=== PATIENT | female | born 1955 | race African-American/Black ===

== ENCOUNTER 2020-09-09 08:53 | Emergency (ER) | payer MEDICAID ==
[~2020-09-09] VITALS: Ht 167.6 cm; Wt 70.0 kg
[2020-09-09] MEDS ORDERED: LOSA1TAB25 PO (09:09)
[2020-09-09] MEDS ORDERED: METF500T27 PO (09:09)
[2020-09-09] MEDS ORDERED: ASPI-1026 PO (09:10)
--- NOTE | 2020-09-09 09:11 | NUR ---
MANDI RN: THIS IS A 65 YEAR OLD FEMALE WHO BIB AMBULANCE FROM THE [facility] DUE TO 2 HOUR ONSET OF DIZZINESS AND NAUSEA. PT HAS HX OF DM 2, PT STATES SHE TOOK HER MEDICATIONS THIS AM. PT BS IS 508, PT PLACED PARLIAMENTARY ARCHIVIST SINUS TACHY, CONTINOUS SPO2 AT 96%, AND CYCLE VS.
[2020-09-09] MEDS ORDERED: SODIUM CHLORIDE FLUSH 10ML SYR IVF ONE (10:00)
[2020-09-09] MEDS ORDERED: SODIUM CHLORIDE 0.9% 1,000ML IVBOLUS ONE ×2 (10:00→11:00)
[2020-09-09 10:02] LABS: BASOPHILS % (AUTO) 0 % (0-1); EOSINOPHILS % (AUTO) 0 % (1-7); LYMPHOCYTES % (AUTO) 13 % (22-44); MEAN CORPUSCULAR HEMOGLOBIN 29.5 pg (27.0-34.8); MEAN CORPUSCULAR HGB CONC 33.1 g/dL (32.4-35.8); MEAN PLATELET VOLUME 8.4 fL (7.4-10.4); MONOCYTES % (AUTO) 5 % (2-9); NEUTROPHILS % (AUTO) 81 % (42-75); PLATELET COUNT 303 x10^3/uL (130-400); RED BLOOD COUNT 5.04 x10^6/uL (3.82-5.3)
[2020-09-09 10:04] LABS: CHLORIDE 97 mmol/L (98-107); MD NO
[2020-09-09 10:09] LABS: ALBUMIN 3.4 g/dL (3.4-5.0); ANION GAP 11 mmol/L (5-15)
[2020-09-09 10:15] LABS: ALANINE AMINOTRANSFERASE 34 U/L (12-78); ALKALINE PHOSPHATASE 107 U/L (45-117); BILIRUBIN,TOTAL 0.7 mg/dL (0.2-1.0); CREATININE 1.39 mg/dL (0.55-1.02); TOTAL PROTEIN 7.7 g/dL (6.4-8.2); TROPONIN I < 0.015 ng/mL (0.000-0.045)
[2020-09-09 10:23] LABS: MICROSCOPIC INDICATED
--- NOTE | 2020-09-09 10:49 | NUR ---
after 1l ns-fdbs to 577. erp made aware-to admin 2l and add 12 unts sq insulin
[2020-09-09] MEDS ORDERED: INSULIN SINGLE DOSE, ER ONE (10:51)
[2020-09-09] MEDS ORDERED: INSULIN REGULAR 100 UNITS/ML, 3ML VIAL SQ-INSULIN ONE (11:00)
[2020-09-09 11:08] LABS: PH, VENOUS 7.349 pH (7.320-7.420)
[2020-09-09 11:09] LABS: O2 FLOW ROOM AIR L/min
--- NOTE | 2020-09-09 11:32 | NUR ---
AFTER 2L NS FSBS 463. PROVIDED WITH LOW CALORIE LUNCH TRAY
[2020-09-09 11:36] VITALS: BP 147/113
[2020-09-09 12:23] LABS: ACETONE, SERUM Moderate(40mg/dL) (Negative)
== END 2020-09-09 12:12 | disposition home or self-care (01) ==
LOC: ED 11:18
DX: E11.65 Type 2 diabetes mellitus with hyperglycemia (principal); R53.1 Weakness; R11.0 Nausea; I10 Essential (primary) hypertension; R00.0 Tachycardia, unspecified; R07.89 Other chest pain
CPT/HCPCS: 36415; 71045; 80053; 81001; 82010; 82803; 82962; 84484; 85025; 87086; 93005; 96360; 96372; 99285; J1815; J7030